=== PATIENT | female | born 1955 ===

== ENCOUNTER 2018-08-01 16:12 | Emergency (ER) | payer MEDICAID ==
[2018-08-01 16:32] VITALS: BP 134/92; PULSE 83; RESP 18; TEMP 97.9; O2SAT 97
[2018-08-01] MEDS ORDERED: Dexamethasone 4 mg/1 ml IV STA (17:29)
[2018-08-01] MEDS ORDERED: Dexamethasone 4 mg/1 ml IM STA (17:29)
--- NOTE | 2018-08-01 17:39 | C.PDOC ---
History Of Present Illness 62 year old female presents to the emergency department reporting allergic reaction x 1 week. She states that she developed a rash surrounding her surgical scar (s/p left shoulder surgery July 11, [address] Toledo) and has become diffusely across her body. Patient took Benadryl last night but symptoms did not improve. Her doctor believes the reaction is from the glue that was used during surgery as per patient. She was seen today and prescribed Keflex and advised to follow up in ED to manage allergy. She denies any respiratory distress, sob, chest pain nausea, vomiting, and abdominal pain. Chief Complaint (Nursing): Abnormal Skin Integrity History Per: Patient History/Exam Limitations: no limitations Onset/Duration Of Symptoms: Days Current Symptoms Are (Timing): Still Present Location Of Injury: Left: Shoulder (surrounding surgical scar) Quality Of Symptoms: Itching Past Medical History Reviewed: Historical Data, Nursing Documentation, Vital Signs Vital Signs: Last Vital Signs Temp 97.9 F 08/01/18 16:26 Pulse 83 08/01/18 16:26 Resp 18 08/01/18 16:26 BP 134/92 H 08/01/18 16:26 Pulse Ox 97 08/01/18 16:26 Primary Care Provider: Sanket Perera - Medical History PMH: Denies: Chronic Kidney Disease Surgical History: Appendectomy - [facility] Procedures RELEASE PERITONEUM, OPEN APPROACH (02/03/16) REPAIR ABDOMINAL WALL, OPEN APPROACH (02/03/16) Family History: States: Unknown Family Hx - Social History Hx Tobacco Use: No Hx Alcohol Use: No Hx Substance Use: No - Immunization History Hx Tetanus Toxoid Vaccination: No Hx Influenza Vaccination: No Hx Pneumococcal Vaccination: No Review Of Systems Constitutional: Negative for: Fever, Chills, Sweats, Weakness Cardiovascular: Negative for: Chest Pain, Light Headedness Respiratory: Negative for: Shortness of Breath, Wheezing Gastrointestinal: Negative for: Nausea, Vomiting, Abdominal Pain Musculoskeletal: Negative for: Neck Pain Skin: Positive for: Rash (erythematous ). Negative for: Bruising Neurological: Negative for: Weakness, Numbness, Headache Physical Exam - Physical Exam Appears: Well, Non-toxic, No Acute Distress Skin: No Normal Color, Other (rash surrounding 7cm surgical scar; slightly tender; erythematous; pruritic) Head: Atraumatic, Normacephalic Eye(s): bilateral: Normal Inspection Nose: No Discharge Oral Mucosa: Moist Tongue: Normal Appearing Lips: Normal Appearing Throat: No Erythema, No Exudate Neck: Normal ROM, Supple Chest: Symmetrical Cardiovascular: Rhythm Regular Respiratory: Normal Breath Sounds, No Wheezing Gastrointestinal/Abdominal: Soft, No Tenderness Neurological/Psych: Oriented x3, Normal Speech, Normal Cognition, Normal Motor, Normal Sensation Gait: Steady ED Course And Treatment O2 Sat by Pulse Oximetry: 97 (RA) Medical Decision Making Medical Decision Making: Plan: Benadryl 50 mg PO Decadron 10 mg IV Pepcid 20 mg PO Reassessed: Patient notes improvement and requesting discharge patient stable for discharge Disposition Counseled Patient/Family Regarding: Studies Performed, Diagnosis, Need For Followup, Rx Given - Disposition Referrals: Sanket Perera [Medical Doctor] - Disposition: HOME/ ROUTINE Disposition Time: 18:04 Condition: STABLE Additional Instructions: Continue meds as prescribed Continue antibiotics prescribed (keflex)by Dr. Toledo Follow up with Dr. Toledo as scheduled Return to the ED if symptoms worsen Prescriptions: DiphenhydrAMINE [Benadryl] 25 mg PO BID #14 cap Famotidine [Pepcid] 20 mg PO DAILY #14 tab predniSONE [predniSONE Tab] 60 mg PO DAILY #15 tab Instructions: Contact Dermatitis (DC) Forms: [employer] (Liberian) - Clinical Impression Clinical Impression: Skin irritation, Allergic contact dermatitis - Scribe Statement The provider has reviewed the documentation as recorded by the Scribe (Leigha Goff) All medical record entries made by the Scribe were at my direction and personall y dictated by me. I have reviewed the chart and agree that the record accurately reflects my personal performance of the history, physical exam, medical decision making, and the department course for this patient. I have also personally directed, reviewed, and agree with the discharge instructions and disposition.
== END 2018-08-01 18:15 | disposition home or self-care (01) ==
LOC: C.ER 16:12
DX: L23.9 Allergic contact dermatitis, unspecified cause (principal); L98.8 Other specified disorders of the skin and subcutaneous tissue
CPT/HCPCS: 96372; 99283; J1100